=== PATIENT | male | born 1965 | race Caucasian/White ===

== ENCOUNTER → 2022-06-02 10:20 | Outpatient (CLI) | payer OTHER, SELFPAY ==
[2022-06-02 11:43] LABS: COVID19 -Nasal RAPID Negative (Negative)
== END ==
PROVIDERS: PCP Family Medicine; Visit Provider Surgery
DX: Z20.822 Contact with and (suspected) exposure to COVID-19 (principal); Z01.812 Encounter for preprocedural laboratory examination
CPT/HCPCS: 87635; C9803

== ENCOUNTER 2022-06-03 07:21 | Day surgery (SDC) | payer OTHER, SELFPAY ==
--- NOTE | 2022-06-03 | PATH_ITS ---
[facility] Accession Number: [id number] . 01 Material submitted: . colon - TRANSVERSE COLON POLYP . 01 Diagnosis: Transverse Colon Polyp, Biopsy: Hyperplastic polyp. MRV 06/05/2022 1228 Local . 01 Electronically signed: . Alyssa Crow MD, Pathologist NPI- [id number] . 01 Gross description: . TRANSVERSE COLON POLYP: Received in formalin are multiple fragment(s) of zaman, soft tissue measuring 1.5 x 0.5 x 0.1 cm in aggregate submitted entirely in 1 cassette(s) /CPE 06/04/2022 0747 Local . 01 Pathologist provided ICD-10: D12.3 . 01 CPT . 487563 Specimen Comment: A courtesy copy of this report has been sent to [phone] Performed at: 01 [facility] [address] [place] [address] [id number] MD Alexander Donohue MD Phone: [phone]
[2022-06-03] MEDS: LACTATED RINGERS 1,000 ML 200 ML IV (07:32)
[2022-06-03 07:36] VITALS: BP 126/76; PULSE 64; RESP 18; TEMP 36.6; O2SAT 98; BMI 27.8
--- NOTE | 2022-06-03 08:39 | P.HP_ITS ---
History of Present Illness History of Present Illness Date Patient Seen: 06/03/22 Time Patient Seen: 08:39 Chief complaint: SDC Narrative: The patient presents for colorectal screening. They have never had any previous examination for such. No personal or family history of colon cancer. On further history denies any recent gastrointestinal symptoms. No nausea, vomiting, abdominal pain, loss of appetite, unexplained weight loss, change in bowel habits, diarrhea, constipation, melena, hematochezia, or bright red blood per rectum. Patient History Medical History Asthma Family & Social History Social History: household members none Tobacco & Substance use: Smoking Status Former smoker alcohol intake current alcohol intake frequency 0-2 drinks per day Substance Use Type does not use Meds Home Medications and Allergies Home Medications Medication Instructions Recorded Confirmed Type No Known Home Medications 06/03/22 06/03/22 History Allergies Allergy/AdvReac Type Severity Reaction Status Date / Time No Known Drug Allergies Allergy Verified 06/03/22 07:30 Exam Vital Signs (past 8 hours): - 06/03/22 07:36 Temperature 97.9 F Pulse Rate 64 Respiratory Rate 18 Blood Pressure 126/76 Pulse Oximetry 98 Oxygen Delivery Method Room Air Oxygen Delivery Method Room Air Narrative Exam Narrative: General adult male alert oriented no acute distress Chest nonlabored respiration Assessment & Plan Assessment & Plan narrative: The patient requires colorectal screening and colonoscopy is recommended. Technical details were discussed. Risks, benefits, alternatives explained. Risks including but not limited to myocardial infarction, aspiration, bleeding, pain, missed lesion, incomplete examination, need for further radiographic studies, colonic perforation, and need for major abdominal surgery were discusse d. All questions were answered to their satisfaction, and they are in agreement with this plan. Time Spent With Patient Critical Care time: I spent a total of [] minutes of critical care time on this patient's care today; this time is exclusive of procedural time.
[2022-06-03] MEDS: fentaNYL 250 MCG/5 ML INJ IV (09:01)
[2022-06-03] MEDS: MIDAZOLAM 5 MG/5 ML VIAL 10 MG IV (09:06)
--- NOTE | 2022-06-03 09:15 | PM.OP.COLON ---
Operative Date/Time/Diagnoses Date of procedure: 06/03/22 Time of procedure: 09:15 Pre-op diagnosis: Screening colonoscopy Post-op diagnosis: other (Colonic polyp) Procedure & Clinicians Study performed: Colonoscopy Same procedure as scheduled: Yes Indications: Screening colonoscopy Surgeon: Jose Ramon Lauren Procedure Notes Procedure in detail: Medications: Conscious sedation using 10mg IV midazolam and 250mcg IV of fentanyl The history and physical was performed/updated and the patient is ASA class is 1. The procedure was discussed in detail with the patient. Potential risks complications including infection, bleeding, missed diagnosis, perforation, need for surgery, and were explained. Their questions were answered and informed consent was obtained. Patient was brought to the procedure room and placed standard monitoring equipment. The patient's vital signs were monitored continuously throughout the entire procedure. Prior to starting time-out was performed. The patient was placed in the left lateral recumbent position. Procedural sedation was administered. Examination began with a thorough inspection of the perianal area there was no evidence of fissures, fistulae, external hemorrhoids or cutaneous malignancy. The colonoscopy scope was then placed into the anal canal and was advanced to the cecum, which was identified by the ileocecal valve, the appendiceal orifice and the confluence of the taenia. The scope was then slowly withdrawn examining colon thoroughly in all directions, irrigating it of any residual stool. FINDINGS 1. Transverse colon-1 cm polyp removed with hot snare. 2. Sigmoid colon-mild diverticulosis The patient tolerated the procedure well. They will be discharged once criteria are met. The prep was of fair quality. The withdrawl time was 7 minutes. The sedation time was 26 minutes. Specimen(s): other (Transverse colonic polyp) Complications: none Impression: Colonic polyp Post-procedure Recommendations: Colonoscopy in 5 years
[2022-06-03 09:18] VITALS: BP 117/90; PULSE 56; RESP 10; TEMP 36.7; O2SAT 99
[2022-06-03 09:23] VITALS: BP 128/78; PULSE 49; RESP 10; O2SAT 99
[2022-06-03 09:28] VITALS: BP 126/82; PULSE 60; RESP 16; O2SAT 99
[2022-06-03 09:34] VITALS: BP 132/91; PULSE 56; RESP 16; O2SAT 99
[2022-06-03 09:37] VITALS: BP 116/80; PULSE 59; RESP 16; O2SAT 100
--- NOTE | 2022-06-03 09:48 | SUR.PHASEII ---
Pt A&Ox4, denies any distress, VSS, tolerating PO and ready to discharge home. Discharge instructions reviewed with patient and time allowed for questions, written instructions handed to pt. Pt left unit via w/c with RN assist to ER entrance where family will transport pt home.
== END 2022-06-03 09:50 | disposition home or self-care (01) ==
PROVIDERS: PCP Family Medicine; Referring Provider Surgery; Visit Provider Surgery
PROC: 0DJD8ZZ Inspection of Lower Intestinal Tract, Via Natural or Artificial Opening Endoscopic (ICD-10-PCS; CPT 45378; principal; 2022-06-03 08:30)
DX: Z12.11 Encounter for screening for malignant neoplasm of colon (principal); K57.30 Diverticulosis of large intestine without perforation or abscess without bleeding; K63.5 Polyp of colon
CPT/HCPCS: 45385; 99152; 99153; J2250; J3010